=== PATIENT | male | born 1955 | race Hispanic/Latino ===

== ENCOUNTER 2021-04-15 06:29 | Emergency (ER) | payer OTHER ==
[~2021-04-15] VITALS: Ht 177.8 cm; Wt 113.4 kg
[2021-04-15] MEDS ORDERED: SODIUM CHLORIDE 0.9% 1000ML 1,000 ML IV STA (07:24)
[2021-04-15] MEDS ORDERED: MORPHINE SULFATE INJ 4 MG/ML INJ 1ML IV STA (07:24)
[2021-04-15] MEDS ORDERED: PHENYLEPHRINE HCL 1% 10 MG/ML VIAL ONE (07:29)
[2021-04-15] MEDS ORDERED: ONDANSETRON HCL INJ 2MG/ML 2ML 2 MG/ML VIAL IV ONE (07:30)
[2021-04-15] MEDS ORDERED: TERBUTALINE SULFATE 1 MG/ML VIAL SC ONE (07:45)
[2021-04-15] MEDS ORDERED: SODIUM CHLORIDE 0.9% 1000ML 1,000 ML ONE (07:50)
[2021-04-15] MEDS ORDERED: TERBUTALINE SULFATE 1 MG/ML VIAL ONE (08:13)
[2021-04-15] MEDS ORDERED: HYDROCODONE/APAP 5MG-325MG TAB PO ONE (08:45)
[2021-04-15] MEDS ORDERED: KETOROLAC TROMETHAMINE 30 MG/ML VIAL IV ONE (08:45)
[2021-04-15] MEDS ORDERED: ACETAMINOPHEN-1 EAC4 PO (09:00)
[2021-04-15] MEDS ORDERED: ZOFRAN4 MG PO (09:00)
[2021-04-15] MEDS ORDERED: IBUPROFEN IB200 MG PO (09:00)
[2021-04-15 09:22] VITALS: BP 120/62
== END 2021-04-15 09:26 | disposition home or self-care (01) ==
LOC: FSED 07:02
DX: N48.33 Priapism, drug-induced (principal)
CPT/HCPCS: 80053; 85025; 85610; 99283; J1885; J2270; J2370; J2405; J3105; J7030

== ENCOUNTER 2022-10-10 09:33 | Emergency (ER) | payer MEDICARE ==
[~2022-10-10] VITALS: Ht 177.8 cm; Wt 113.4 kg
[~2022-10-10 09:33] MED LIST: ACETAMINOPHEN-1 EAC4 PO; IBUPROFEN IB200 MG PO; ZOFRAN4 MG PO
[2022-10-10 10:52] LABS: CLARITY,URINE CLOUDY (CLEAR); COLOR,URINE YELLOW (YELLOW); KETONES,URINE NEGATIVE (NEGATIVE); LEUKOCYTE ESTERASE ,URINE LARGE (NEGATIVE); NITRITE,URINE POSITIVE (NEGATIVE); PROTEIN,URINE DIPSTICK 2+ (NEGATIVE)
[2022-10-10 11:05] LABS: BACTERIA,URINE MANY /HPF; EPITHELIAL CELLS,URINE MODERATE /LPF; RBC,URINE >50 /HPF (0-5); WBC,URINE (MAN) >50 /HPF (0-5)
[2022-10-10] MEDS ORDERED: CEFDINIR 300 MG CAP PO ONE (11:30)
[2022-10-10] MEDS ORDERED: CEFDINIR300 MG PO (11:37)
== END 2022-10-10 11:44 | disposition home or self-care (01) ==
LOC: ER 09:37
DX: R30.0 Dysuria (principal); N39.0 Urinary tract infection, site not specified; E11.9 Type 2 diabetes mellitus without complications; E78.5 Hyperlipidemia, unspecified; K21.9 Gastro-esophageal reflux disease without esophagitis
CPT/HCPCS: 81001; 87086; 87186; 99283

== ENCOUNTER 2022-12-11 21:02 | Emergency (ER) | payer MEDICARE ==
[~2022-12-11] VITALS: Ht 177.8 cm; Wt 106.1 kg
[~2022-12-11 21:02] MED LIST changes: +CEFDINIR300 MG PO
[2022-12-11] MEDS ORDERED: ONDANSETRON HCL INJ 2MG/ML 2ML 2 MG/ML VIAL IV STA (21:18)
[2022-12-11] MEDS ORDERED: ONDANSETRON HCL INJ 2MG/ML 2ML 2 MG/ML VIAL ONE (21:28)
[2022-12-11] MEDS ORDERED: SODIUM CHLORIDE 0.9% 1000ML 1,000 ML ONE (21:28)
[2022-12-11] MEDS ORDERED: Morphine 4mg INJECTION 4 MG/ML INJ ONE (21:28)
[2022-12-11] MEDS ORDERED: SODIUM CHLORIDE 0.9% 1000ML 1,000 ML IV SCH (21:30)
[2022-12-11] MEDS ORDERED: Morphine 2mg Syringe 2 MG/ML SYR IV ONE (21:30)
[2022-12-11] MEDS ORDERED: ONDANSETRON ODT4 MG PO (22:39)
[2022-12-11] MEDS ORDERED: DICYCLOMINE HCL10 MG PO (22:39)
[2022-12-11 23:05] VITALS: BP 156/79
== END 2022-12-11 23:05 | disposition home or self-care (01) ==
LOC: FSED 21:18
DX: R10.9 Unspecified abdominal pain (principal); R19.7 Diarrhea, unspecified; I10 Essential (primary) hypertension; E11.9 Type 2 diabetes mellitus without complications; E78.5 Hyperlipidemia, unspecified; K21.9 Gastro-esophageal reflux disease without esophagitis; Z87.19 Personal history of other diseases of the digestive system
CPT/HCPCS: 74176; 80048; 80076; 81003; 85025; 99284; J2270 ×2; J2405; J7030

== ENCOUNTER 2023-02-01 14:46 | Inpatient (IN) | payer MEDICARE ==
[~2023-02-01] VITALS: Ht 177.8 cm; Wt 108.2 kg
[~2023-02-01 14:46] MED LIST changes: +DICYCLOMINE HCL10 MG PO; +ONDANSETRON ODT4 MG PO
[2023-02-01] MEDS ORDERED: ALBUTEROL/IPRATROPIUM 3 ML NEB NEB ONE ×2 (15:45→20:15)
[2023-02-01] MEDS ORDERED: ALBUTEROL/IPRATROPIUM 3 ML NEB ONE ×2 (15:59→20:11)
[2023-02-01] MEDS ORDERED: PROTONIX20 MG PO (18:15)
[2023-02-01] MEDS ORDERED: LISINOPRIL10 MG PO (18:15)
[2023-02-01] MEDS ORDERED: FLOMAX0.4 MG PO (18:15)
[2023-02-01] MEDS ORDERED: SODIUM CHLORIDE FLUSH 10 ML SYR INJ PRN (20:30)
[2023-02-01] MEDS ORDERED: ASPIRIN 81 MG CHEW TAB PO ONE (20:30)
[2023-02-01 21:30] VITALS: BP 121/66; PULSE 79; RESP 22; O2SAT 97
[2023-02-01] MEDS ORDERED: ATORVASTATIN CA10 MG PO (21:32)
[2023-02-01] MEDS ORDERED: TIMOLOL(T) OP (21:32)
[2023-02-01] MEDS: GUAIFENESIN/CODEINE 5 ML LIQD PO PRN (21:50)
[2023-02-01 22:00] VITALS: BP 123/88; PULSE 87; RESP 20; TEMP 98.1; O2SAT 100
[2023-02-01 22:54] VITALS: BP 123/88; PULSE 87; RESP 20; TEMP 98.1; O2SAT 100
[2023-02-01] MEDS ORDERED: TEMAZEPAM 7.5 MG CAP PO PRN (23:15)
[2023-02-01] MEDS: IPRATROPIUM BROMIDE 0.02% 2.5 ML NEB NEB PRN (23:20)
[2023-02-01] MEDS: ALBUTEROL SULF 0.083% NEB SOLN 3 ML NEB NEB PRN (23:20)
[2023-02-01 23:40] VITALS: PULSE 86; RESP 18; O2SAT 96
[2023-02-02] VITALS (11 sets, daily range): BP systolic 113–141; BP diastolic 65–90; PULSE 80–98; RESP 16–21; TEMP 97.2–98.8; O2SAT 95–100
[2023-02-02] MEDS: GUAIFENESIN/CODEINE 5 ML LIQD PO PRN ×4 (02:14→17:40)
[2023-02-02] MEDS: IPRATROPIUM BROMIDE 0.02% 2.5 ML NEB NEB PRN ×3 (06:12→19:35)
[2023-02-02] MEDS: ALBUTEROL SULF 0.083% NEB SOLN 3 ML NEB NEB PRN ×3 (06:12→19:35)
[2023-02-02 06:32] LABS: BASOPHILS # (AUTO) 0.1 (0.0-0.1); BASOPHILS % 0.4 % (0.0-1.0); EOSINOPHILS # (AUTO) 0.3 (0.0-0.4); EOSINOPHILS % 1.9 % (0.0-6.0); HEMATOCRIT 45.8 % (38.2-49.6); HEMOGLOBIN 15.9 g/dL (14.0-18.0); LYMPHOCYTES # (AUTO) 1.9 (1.0-3.2); LYMPHOCYTES % 14.1 % (18.0-39.1); MEAN CORPUSCULAR HEMOGLOBIN 31.9 pg (28-32); MEAN CORPUSCULAR HGB CONC 34.7 g/dL (31-35); NEUTROPHILS # (AUTO) 10.4 (2.1-6.9); NEUTROPHILS % 76.2 % (38.7-80.0); PLATELET COUNT 203 x10e3/uL (140-360); RED BLOOD COUNT 4.98 x10e6/uL (4.3-5.7); RED CELL DISTRIBUTION WIDTH 12.3 % (11.7-14.4)
[2023-02-02 06:48] LABS: ANION GAP 14.3 mmol/L (8-16); CREATININE, SERUM 1.03 mg/dL (0.72-1.25); POTASSIUM 4.3 mmol/L (3.5-5.1)
[2023-02-02] MEDS ORDERED: HEPARIN 25,000 UNIT DRIP IV ONE (07:35)
[2023-02-02 11:25] LABS: CREATINE KINASE 40 IU/L (30-200)
[2023-02-02] MEDS: PREDNISONE 20 MG TAB PO SCH (14:37)
[2023-02-02] MEDS: SODIUM CHLORIDE 0.9% 1000ML 1,000 ML IV SCH (14:38)
[2023-02-02] MEDS: TIMOLOL MALEATE 0.5% OPTH DRP 5 ML BTL OP SCH (17:32)
[2023-02-02] MEDS: ATORVASTATIN 10 MG TAB PO SCH (21:01)
[2023-02-03] VITALS (13 sets, daily range): BP systolic 103–133; BP diastolic 59–76; PULSE 75–98; RESP 17–23; TEMP 97.7–98.6; O2SAT 92–100
[2023-02-03] MEDS: ALBUTEROL SULF 0.083% NEB SOLN 3 ML NEB NEB PRN ×4 (00:30→19:35)
[2023-02-03] MEDS: IPRATROPIUM BROMIDE 0.02% 2.5 ML NEB NEB PRN ×4 (00:30→19:35)
[2023-02-03] MEDS: TIMOLOL MALEATE 0.5% OPTH DRP 5 ML BTL OP SCH ×2 (08:35→16:57)
[2023-02-03] MEDS: PANTOPRAZOLE SOD 40 MG TABEC PO SCH (08:36)
[2023-02-03] MEDS: TAMSULOSIN HCL 0.4 MG CAP PO SCH (08:36)
[2023-02-03] MEDS: LISINOPRIL 10 MG TAB PO SCH (08:36)
[2023-02-03] MEDS: PREDNISONE 20 MG TAB PO SCH (08:36)
[2023-02-03] MEDS: GUAIFENESIN/CODEINE 5 ML LIQD PO PRN ×3 (08:40→21:38)
[2023-02-03] MEDS: SODIUM CHLORIDE 0.9% 1000ML 1,000 ML IV SCH (09:25)
[2023-02-03] MEDS ORDERED: CHOLESTYRAMINE 4 GM PACKET PO PRN (11:00)
[2023-02-03] MEDS ORDERED: INSULIN LISPRO 100 UNIT/1 ML 3ML VIAL SQ SCH ×2 (11:30→12:30)
[2023-02-03] MEDS: HYDROCORTISONE ACETATE 25 MG/SUPP.RECT SUPP RC SCH ×2 (11:37→21:38)
[2023-02-03] MEDS ORDERED: DEXTROSE 50% SYRINGE 50 ML IV PRN (12:15)
[2023-02-03] MEDS: INSULIN LISPRO 100 UNIT/1 ML 3ML VIAL SQ SCH ×3 (12:19→21:37)
[2023-02-03] MEDS: ATORVASTATIN 10 MG TAB PO SCH (21:38)
[2023-02-04] VITALS (7 sets, daily range): BP systolic 128–137; BP diastolic 80–82; PULSE 74–98; RESP 18; TEMP 97.6–98; O2SAT 97–100
[2023-02-04] MEDS: IPRATROPIUM BROMIDE 0.02% 2.5 ML NEB NEB PRN ×2 (00:50→08:05)
[2023-02-04] MEDS: ALBUTEROL SULF 0.083% NEB SOLN 3 ML NEB NEB PRN ×2 (00:50→08:05)
[2023-02-04] MEDS: INSULIN LISPRO 100 UNIT/1 ML 3ML VIAL SQ SCH ×2 (07:30→11:30)
[2023-02-04] MEDS: LISINOPRIL 10 MG TAB PO SCH (09:16)
[2023-02-04] MEDS: PANTOPRAZOLE SOD 40 MG TABEC PO SCH (09:17)
[2023-02-04] MEDS: HYDROCORTISONE ACETATE 25 MG/SUPP.RECT SUPP RC SCH (09:17)
[2023-02-04] MEDS: TAMSULOSIN HCL 0.4 MG CAP PO SCH (09:17)
[2023-02-04] MEDS: PREDNISONE 20 MG TAB PO SCH (09:17)
[2023-02-04] MEDS: TIMOLOL MALEATE 0.5% OPTH DRP 5 ML BTL OP SCH (09:18)
[2023-02-04] MEDS: GUAIFENESIN/CODEINE 5 ML LIQD PO PRN (09:22)
[2023-02-04] MEDS ORDERED: MEDROL4 M2 PO (10:56)
[2023-02-04] MEDS ORDERED: GUAIFENESIN-DM10 ML PO (10:56)
[2023-02-04] MEDS ORDERED: PROVENTIL HFA6.7 GM INH (10:56)
== END 2023-02-04 13:59 | disposition home or self-care (01) | DRG 203 ==
LOC: FSED 14:50 → ERHOLD 20:33 → MED/SURG2 21:04 → OBSVTOIN 02-03 08:59
PROVIDERS: ADMIT Internal Medicine; ATTEND Internal Medicine
DX: J40 Bronchitis, not specified as acute or chronic (principal); R05.3 Chronic cough; R19.7 Diarrhea, unspecified; I10 Essential (primary) hypertension; N40.0 Benign prostatic hyperplasia without lower urinary tract symptoms; R07.89 Other chest pain; R73.03 Prediabetes; Z20.822 Contact with and (suspected) exposure to COVID-19; Z87.891 Personal history of nicotine dependence
CPT/HCPCS: 0223U; 36415; 71250; 80048; 81003; 82550; 82553; 82948; 83880; 84484; 85025; 85379; 93005; 93306; 94640; 94760; 94799; 99284; G0378; J7030; J7512

== ENCOUNTER 2024-04-13 09:16 | Emergency (ER) | payer MEDICARE ==
[~2024-04-13] VITALS: Ht 177.8 cm; Wt 108.0 kg
[~2024-04-13 09:16] MED LIST changes: +ATORVASTATIN CA10 MG PO; +FLOMAX0.4 MG PO; +GUAIFENESIN-DM10 ML PO; +LISINOPRIL10 MG PO; +MEDROL4 M2 PO; +PROTONIX20 MG PO; +PROVENTIL HFA6.7 GM INH; +TIMOLOL(T) OP
[2024-04-13 09:25] VITALS: TEMP 98.6
[2024-04-13] MEDS ORDERED: BROMFED DM COU118 ML PO (09:40)
[2024-04-13] MEDS: ASPIRIN 81 MG CHEW TAB PO ONE (09:41)
[2024-04-13] MEDS ORDERED: PAXLOVID 300-11 EAC1 PO (09:43)
[2024-04-13 13:13] VITALS: PULSE 96; RESP 18; O2SAT 96
== END 2024-04-13 13:40 | disposition home or self-care (01) ==
LOC: FSED 09:23
DX: R07.89 Other chest pain (principal); U07.1 COVID-19; E11.65 Type 2 diabetes mellitus with hyperglycemia; I10 Essential (primary) hypertension; R94.31 Abnormal electrocardiogram [ECG] [EKG]
CPT/HCPCS: 0223U; 71046; 80053; 83880; 84484; 85025; 93005; 99284

== ENCOUNTER 2024-05-16 12:32 | Emergency (ER) | payer MEDICARE ==
[~2024-05-16] VITALS: Ht 177.8 cm; Wt 108.0 kg
[~2024-05-16 12:32] MED LIST changes: +BROMFED DM COU118 ML PO; +PAXLOVID 300-11 EAC1 PO
[2024-05-16 12:45] VITALS: PULSE 97; RESP 18; TEMP 98.3; O2SAT 97
== END 2024-05-16 14:25 | disposition home or self-care (01) ==
LOC: FSED 13:00
DX: R05.9 Cough, unspecified (principal); U09.9 Post COVID-19 condition, unspecified
CPT/HCPCS: 0223U; 71046; 83518; 87400; 99283